=== PATIENT | female | born 1950 | race Caucasian/White ===

== ENCOUNTER → 2018-07-15 09:59 | Outpatient (CLI) | payer MEDICARE, SELFPAY ==
[2018-07-15 10:21] LABS: Add Manual Diff / Slide Review NO; Basophils Absolute Auto 0 /uL (0-100); Basophils Percent Auto 0.6 % (0-2); Eosinophils Absolute Auto 100 /uL (0-450); Eosinophils Percent Auto 0.9 % (2-4); Hematocrit 40.4 % (36-46); Hemoglobin 13.5 g/dL (12.0-16.0); Lymphocytes Absolute Auto 2700 /uL (1100-4500); Lymphocytes Percent Auto 37.9 % (25-40); Mean Corpuscular HGB Conc 33.5 % (30-36); Mean Corpuscular Hemoglobin 30.1 PG (26-34); Mean Corpuscular Volume 89.8 fL (80-100); Monocytes Absolute Auto 700 /uL (0-900); Neutrophils Absolute Auto 3700 /uL (1500-7000); Neutrophils Percent Auto 51.6 % (50-75); Platelet Count 276 X10^3/uL (150-400); Red Blood Cell Count 4.49 X10^6/uL (4.0-5.2); Red Cell Distribution Width 13.1 % (11.6-14.8); White Blood Cell Count 7.2 X10^3/uL (4.5-11.0)
[2018-07-15 10:32] LABS: Alanine Aminotransferase 25 IU/L (9-52); Albumin 4.7 g/dL (3.5-5.0); Albumin Globulin Ratio 1.4 (1.0-2.8); Alkaline Phosphatase 67 U/L (38-126); Aspartate Aminotransferase 31 IU/L (14-36); BUN Creatinine Ratio 31.7 (6-22); Bilirubin Total 0.6 mg/dL (0.2-1.3); Blood Urea Nitrogen 19 mg/dL (7-17); Calcium 9.8 mg/dL (8.4-10.2); Carbon Dioxide 29 mmol/L (22-32); Chloride 103 mmol/L (98-107); Creatine Kinase 49 U/L (30-135); Estimated Glomerular Filt Rate > 60.0 mL/min (>60); Globulin 3.4 g/dL (1.7-4.1); Glucose 99 mg/dL (80-110); HEMOLYSIS < 15 (0-50); Sodium 139 mmol/L (137-145); Total Protein 8.1 g/dL (6.3-8.2)
[2018-07-15 10:44] LABS: Troponin I < 0.012 ng/mL (0.01-0.034)
[2018-07-15 11:12] LABS: TSH w/ Reflex to FT4 1.46 uIU/mL (0.47-4.68)
== END ==
PROVIDERS: PCP Physician Assistant; Visit Provider Physician Assistant
DX: R00.2 Palpitations (principal)
CPT/HCPCS: 36415; 80053; 82550; 84443; 84484; 85025

== ENCOUNTER → 2019-10-25 07:17 | Outpatient (CLI) | payer MEDICARE, SELFPAY ==
[2019-10-25 08:40] LABS: Add Manual Diff / Slide Review NO; Basophils Absolute Auto 0 /uL (0-100); Basophils Percent Auto 0.5 % (0-2); Eosinophils Absolute Auto 100 /uL (0-450); Eosinophils Percent Auto 1.2 % (2-4); Hematocrit 40.1 % (36-46); Hemoglobin 13.2 g/dL (12.0-16.0); Lymphocytes Absolute Auto 2800 /uL (1100-4500); Lymphocytes Percent Auto 45.3 % (25-40); Mean Corpuscular Hemoglobin 29.5 PG (26-34); Mean Corpuscular Volume 89.3 fL (80-100); Monocytes Absolute Auto 700 /uL (0-900); Neutrophils Absolute Auto 2600 /uL (1500-7000); Platelet Count 276 X10^3/uL (150-400); Red Blood Cell Count 4.49 X10^6/uL (4.0-5.2); Red Cell Distribution Width 12.8 % (11.6-14.8); White Blood Cell Count 6.2 X10^3/uL (4.5-11.0)
[2019-10-25 09:04] LABS: Alanine Aminotransferase 12 IU/L (<35); Albumin Globulin Ratio 1.2 (1.0-2.8); Alkaline Phosphatase 63 U/L (38-126); Aspartate Aminotransferase 25 IU/L (14-36); BUN Creatinine Ratio 22.7 (6-22); Bilirubin Total 0.8 mg/dL (0.2-1.3); Blood Urea Nitrogen 15 mg/dL (7-17); Calcium 9.6 mg/dL (8.4-10.2); Carbon Dioxide 32 mmol/L (22-32); Chloride 101 mmol/L (98-107); Cholesterol 311 mg/dL (140-199); Estimated Glomerular Filt Rate > 60.0 mL/min (>60); Globulin 3.3 g/dL (1.7-4.1); Glucose 83 mg/dL (80-110); HDL Cholesterol 71 mg/dL (40-60); HEMOLYSIS < 15 (0-50); LDL Cholesterol Calculated 219 mg/dL (<100); Potassium 4.3 mmol/L (3.4-5.1); Sodium 140 mmol/L (137-145); Total Protein 7.3 g/dL (6.3-8.2); Triglycerides 104 mg/dL (35-150)
[2019-10-25 09:32] LABS: TSH w/ Reflex to FT4 2.31 uIU/mL (0.47-4.68)
== END ==
PROVIDERS: PCP Registered Nurse Diabetes Educator; Referring Provider Registered Nurse Diabetes Educator; Visit Provider Registered Nurse Diabetes Educator
DX: Z00.00 Encounter for general adult medical examination without abnormal findings (principal); R53.0 Neoplastic (malignant) related fatigue; E78.5 Hyperlipidemia, unspecified
CPT/HCPCS: 36415; 80053; 80061; 84443; 85025

== ENCOUNTER → 2020-01-06 11:04 | Outpatient (CLI) | payer MEDICARE, SELFPAY ==
[2020-01-06 11:48] LABS: RBC Urine None Seen (0-5/HPF)
[2020-01-06 12:47] LABS: Appearance Urine UA CLEAR; Bilirubin Urine UA NEGATIVE (NEGATIVE); Color Urine UA YELLOW; Glucose Urine UA NEGATIVE (Negative); Ketones Urine UA NEGATIVE (NEGATIVE); Leukocyte Esterase Urine UA TRACE (NEGATIVE); Nitrite Urine UA NEGATIVE (Negative); Occult Blood Urine UA NEGATIVE (Negative); Protein Urine UA NEGATIVE (Negative); Specific Gravity Urine UA 1.025 (1.000-1.035); Urobilinogen Urine UA 0.2 E.U./dL (0.2)
[2020-01-06 12:57] LABS: Bacteria Urine Occasional (0-1); Squamous Epithelial Cell Urine 0-1 /HPF (0-5/HPF); WBC Urine 1-5/HPF (0-5/HPF); pH Urine UA 5.5 (4.5-8.0)
[2020-01-06 12:58] LABS: Culture Indicated Urine Specimen Cultured; Mucus Urine 1+ (Negative)
== END ==
PROVIDERS: PCP Registered Nurse Diabetes Educator; Referring Provider Registered Nurse Diabetes Educator; Visit Provider Registered Nurse Diabetes Educator
DX: Z00.00 Encounter for general adult medical examination without abnormal findings (principal); R35.0 Frequency of micturition
CPT/HCPCS: 81001; 87086

== ENCOUNTER → 2020-02-01 17:22 | Outpatient (CLI) | payer MEDICARE, SELFPAY ==
--- NOTE | 2020-02-01 17:25 | DI.MG.S_ITS ---
BILATERAL DIGITAL SCREENING MAMMOGRAM 3D/2D WITH CAD: 02/01/2020 CLINICAL: Routine screening. Family history of breast cancer. Comparison is made to exams dated: 05/12/2017 mammogram, 04/29/2016 mammogram, and 03/20/2015 mammogram - outside location. The tissue of both breasts is predominantly fatty. Current study was also evaluated with a Computer Aided Detection (CAD) system. There are stable benign calcifications in both breasts. No significant masses, calcifications, or other findings are seen in either breast. There has been no significant interval change. IMPRESSION: BENIGN There is no mammographic evidence of malignancy. A 1 year screening mammogram is recommended. This exam was interpreted at Station ID: [id number]. NOTE: For mammograms, a report in lay terms will be sent to the patient. Approximately 15% of breast malignancies will not be visualized mammographically. In the management of a palpable breast mass, a negative mammogram must not discourage biopsy of a clinically suspicious lesion. Electronically Signed By: Abdirashid Chavarria acr/tova:02/02/2020 08:22:37 letter sent: Normal Exam ACR BI-RADS Category 2: Benign Finding(s) 3342F
== END ==
PROVIDERS: PCP Registered Nurse Diabetes Educator; Referring Provider Registered Nurse Diabetes Educator; Visit Provider Registered Nurse Diabetes Educator
DX: Z12.31 Encounter for screening mammogram for malignant neoplasm of breast (principal); Z80.3 Family history of malignant neoplasm of breast
CPT/HCPCS: 77063; 77067

== ENCOUNTER 2020-02-17 09:19 | Emergency (ER) | payer MEDICARE, SELFPAY ==
[2020-02-17 09:58] VITALS: BP 193/93; PULSE 67; RESP 18; TEMP 36.9; O2SAT 99; BMI 20.5
--- NOTE | 2020-02-17 10:02 | DI.RAD.S_ITS ---
PROCEDURE: XR KNEE LT 3V INDICATIONS: pain NO TRAUMA TECHNIQUE: 3 views of the knee were acquired. COMPARISON: None. FINDINGS: Bones: No fractures or dislocations. No suspicious bony lesions. Soft tissues: No joint effusion. No suspicious soft tissue calcifications. IMPRESSION: Unremarkable radiographic examination of left knee. Dictated by: Edin Benitez M.D. on 02/17/2020 at 10:42 Approved by: Edin Benitez M.D. on 02/17/2020 at 10:42
--- NOTE | 2020-02-17 11:10 | ED_ITS ---
HPI - Extremity Injury (Lower) <ROBERT WoodwardBC - Last Filed: 02/17/20 15:56> General Chief Complaint: Extremity Injury, Lower Stated Complaint: sprained L knee for week and a half Time Seen by Provider: 02/17/20 10:54 Source: patient Mode of arrival: Ambulatory Limitations: no limitations History of Present Illness HPI Narrative: The patient is a 69-year-old female nonsmoker with history of dyslipidemia who presents with a chief complaint of right knee pain for the past 2 weeks. She denies any specific falls or trauma, but states that her knee feels unsteady at times. He has improved with ice and Tylenol. However she came to the emergency department because it still hurts without the Tylenol. She denies any falls or trauma. She denies any specific injury. She has been persistently active on the knee until recently. She denies any redness overlying erythema. Denies any previous injuries to her knee. Related Data Home Medications Medication Instructions Recorded Confirmed Calcium gummies See Rx Instructions .ROUTE .COMPLEX 07/27/18 11/03/19 Multivitamin Gummies See Rx Instructions .ROUTE .COMPLEX 07/27/18 11/03/19 Sleep Aid ([employer] Brand) 1 tab PO BEDTIME 07/27/18 11/03/19 Previous Rx's Medication Instructions Recorded atorvastatin 20 mg tablet 20 mg PO BEDTIME #90 tab 11/03/19 Allergies Allergy/AdvReac Type Severity Reaction Status Date / Time No Known Drug Allergies Allergy Verified 02/17/20 09:58 Review of Systems <ARLYN Woodward - Last Filed: 02/17/20 15:56> Review of Systems Narrative: GENERAL: Denies chills, fatigue, malaise, fever, sweats. HEENT: Denies sinus pain, ear pain, sore throat, difficulty swallowing, dizziness. RESPIRATORY: Denies dyspnea, cough, wheezing, hemoptysis, sputum. CARDIOVASCULAR: Denies chest pain, palpitations, orthopnea, edema, GASTROINTESTINAL: Denies nausea, vomiting, abdominal pain, diarrhea, constipation, melena. : Denies dysuria, frequency, incontinence, hematuria, urinary retention. MUSCULOSKELETAL: See HPI SKIN: Denies rash, skin lesions, or other NEUROLOGIC: Denies weakness, headache, numbness, change in speech, confusion, seizures, incoordination. PSYCHIATRIC: No concerning psychosocial issues. 12 point review of systems is negative except for those stated above Patient History <ARLYN Woodward - Last Filed: 02/17/20 15:56> Medical History (Updated 02/17/20 @ 11:20 by ARLYN Woodward) Dyslipidemia Social History Smoking Status: Never smoker second hand exposure: No alcohol intake: current (very seldom. I don't like it.) substance use type: does not use Smoking Status: Never smoker alcohol intake frequency: 0-2 drinks per day Substance Use Type: does not use Exam <ARLYN Woodward - Last Filed: 02/17/20 15:56> Narrative Exam Narrative: GENERAL: This is a well-nourished, well-developed patient, no acute distress HEAD: Atraumatic. Normocephalic. No temporal or scalp tenderness. EYES: Pupils equal round and reactive. Extraocular motions intact. No scleral icterus. No injection or drainage. ENT: Nose without bleeding, purulent drainage or septal hematoma. Wearing a mask Airway patent. CARDIOVASCULAR: Regular rate and rhythm RESPIRATORY: No cough. No increased respiratory effort. No accessory muscle use. EXTREMITIES: No overt pain to palpation left knee. No overt swelling left knee. Able to fully flex and extend left leg. Positive pedal pulses left foot. Negative anterior, posterior, varus valgus, negative Juan Antonio's test. Able to lift entire leg off of recliner. BACK: Nontender without deformity or crepitance. No flank tenderness. NEURO: AOx3. SKIN: No rash or erythema on visible skin. No overlying erythema left knee. Initial Vital Signs Initial Vital Signs: Vital Signs Temperature 98.5 F 02/17/20 09:58 Pulse Rate 67 02/17/20 09:58 Respiratory Rate 18 02/17/20 09:58 Blood Pressure 193/93 H 02/17/20 09:58 Pulse Oximetry 99 02/17/20 09:58 <Ana Wright MD - Last Filed: 02/17/20 19:34> Initial Vital Signs Initial Vital Signs: Vital Signs Temperature 98.5 F 02/17/20 09:58 Pulse Rate 67 02/17/20 09:58 Respiratory Rate 18 02/17/20 09:58 Blood Pressure 193/93 H 02/17/20 09:58 Pulse Oximetry 99 02/17/20 09:58 Scores <ARLYN Woodward - Last Filed: 02/17/20 15:56> GCS [place] coma scale eye opening: Spontaneous [place] coma scale verbal response: Orientated [place] coma scale motor response: Obey commands [place] coma scale total score: 15 Course <ARLYN Woodward - Last Filed: 02/17/20 15:56> Orders Ordered: ED Orders 02/17/20 10:02 XR knee LT 3V Stat Vital Signs Vital signs: Vital Signs - 8 hr 02/17/20 11:42 Pulse Rate 68 Respiratory Rate 14 Blood Pressure 167/77 H Pulse Oximetry 99 <Ana Wright MD - Last Filed: 02/17/20 19:34> Orders Ordered: ED Orders 02/17/20 10:02 XR knee LT 3V Stat Vital Signs Vital signs: Vital Signs - 8 hr 02/17/20 11:42 Pulse Rate 68 Respiratory Rate 14 Blood Pressure 167/77 H Pulse Oximetry 99 MDM - Extremity Injury (Lower) <ARLYN Woodward - Last Filed: 02/17/20 15:56> Imaging Data Extremity x-ray #1: Radiologist's Impression: [address] [place] [id number] ReportSigned Patient: Bernie Lake LMR#: [id number]: 9Acct:[id number]/Sex: 69 / FDate of Service: 02/17/20Loc: EDAccession Number: [id number] Procedure: XR knee LT 3V Ordering Provider: Ana Wright MD PROCEDURE: XR KNEE LT 3V INDICATIONS: pain NO TRAUMA TECHNIQUE: 3 views of the knee were acquired. COMPARISON: None. FINDINGS: Bones: No fractures or dislocations. No suspicious bony lesions. Soft tissues: No joint effusion. No suspicious soft tissue calcifications. IMPRESSION: Unremarkable radiographic examination of left knee. Dictated by: Edin Benitez M.D. on 02/17/2020 at 10:42 Approved by: Edin Benitez M.D. on 02/17/2020 at 10:42 MDM Narrative Medical decision making narrative: The patient is a 69-year-old female who presents with a chief complaint of left knee pain for the past 2 weeks. Plain films are unremarkable. She has no overt signs of infection, is neurovascular intact is able to ambulate and her pain is well controlled with Tylenol and ice. I discussed that x-rays do not rule out soft tissue injury, encouraged follow- up with primary care provider for consideration of further care including pos sibly physical therapy etcetera. Patient has no questions or concerns upon discharge and states understanding of return precautions as well as follow-up care. Discharge Plan Departure Patient Disposition: Home Clinical Impression: Acute pain of left knee Instructions: How To Perform RICE (Rest, Ice, Compress, Elevate), DI for Knee Pain Activity Restrictions/Additional Instructions: Thank you for trusting us with your care today. As I discussed, your x-ray shows no acute fracture. This does not rule out a soft tissue injury such as a ligament or tendon injury. It is important that you follow up with primary care provider, especially if worsening or no improvement. There can be fractures that did not show up on initial x-ray. Please use rest ice compression elevation as well as [id number] pain medications as needed and able Please follow-up with primary care provider in the next few days. You may benefit from further evaluation, physical therapy etcetera. Please come back to the emergency department for any acute concerns. I wish you a speedy recovery. Prescriptions: No Action atorvastatin 20 mg tablet 20 mg PO BEDTIME Qty: 90 RF: 3 Calcium gummies See Rx Instructions .ROUTE .COMPLEX RF: 0 Multivitamin Gummies See Rx Instructions .ROUTE .COMPLEX RF: 0 Sleep Aid ([employer] Brand) 1 tab PO BEDTIME RF: 0 Referrals: Hans Benedict ARNP [Primary Care Provider] - <Ana Wright MD - Last Filed: 02/17/20 19:34> [facility] Att[facility]: I was immediately available in the department for consultation throughout this patient's visit. I agree with documentation as above. Ana Wright MD
[2020-02-17 11:42] VITALS: BP 167/77; PULSE 68; RESP 14; O2SAT 99
== END 2020-02-17 11:43 | disposition home or self-care (01) ==
PROVIDERS: Emergency Provider Nurse Practitioner Family; PCP Registered Nurse Diabetes Educator
DX: M25.562 Pain in left knee (principal); E78.5 Hyperlipidemia, unspecified
CPT/HCPCS: 73562; 99283

== ENCOUNTER → 2020-03-09 15:15 | Outpatient (CLI) | payer MEDICARE, SELFPAY ==
[2020-03-09] MEDS: COVID-19 VACC #1, MRNA(MOD) 100 MCG/0.5 ML VIAL IM (15:47)
== END ==
PROVIDERS: PCP Registered Nurse Diabetes Educator; Visit Provider Internal Medicine
DX: Z23 Encounter for immunization (principal)
CPT/HCPCS: 0011A; 91301

== ENCOUNTER → 2020-04-06 14:39 | Outpatient (CLI) | payer MEDICARE, SELFPAY ==
[2020-04-06] MEDS: COVID-19 VACC #2, MRNA(MOD) 100 MCG/0.5 ML VIAL IM (14:41)
== END ==
PROVIDERS: PCP Registered Nurse Diabetes Educator; Visit Provider Internal Medicine
DX: Z23 Encounter for immunization (principal)
CPT/HCPCS: 0012A; 91301

== ENCOUNTER → 2020-11-16 07:31 | Outpatient (CLI) | payer MEDICARE, SELFPAY ==
[2020-11-16 08:52] LABS: Hematocrit 40.5 % (36-46); Hemoglobin 13.1 g/dL (12.0-16.0); Mean Corpuscular HGB Conc 32.4 % (30-36); Mean Corpuscular Hemoglobin 29.2 PG (26-34); Mean Corpuscular Volume 89.9 fL (80-100); Platelet Count 304 X10^3/uL (150-400); Red Blood Cell Count 4.51 X10^6/uL (4.0-5.2); White Blood Cell Count 6.8 X10^3/uL (4.5-11.0)
[2020-11-16 09:06] LABS: Alanine Aminotransferase 13 IU/L (<35); Albumin 4.4 g/dL (3.5-5.0); Albumin Globulin Ratio 1.4 (1.0-2.8); Alkaline Phosphatase 57 U/L (38-126); Aspartate Aminotransferase 31 IU/L (14-36); BUN Creatinine Ratio 25.9 (6-22); Bilirubin Total 0.8 mg/dL (0.2-1.3); Blood Urea Nitrogen 14 mg/dL (7-17); Calcium 9.6 mg/dL (8.4-10.2); Carbon Dioxide 30 mmol/L (22-32); Chloride 103 mmol/L (98-107); Cholesterol 323 mg/dL (140-199); Estimated Glomerular Filt Rate > 60.0 mL/min (>60); Globulin 3.1 g/dL (1.7-4.1); Glucose 84 mg/dL (80-110); HDL Cholesterol 77 mg/dL (40-60); LDL Cholesterol Calculated 227 mg/dL (<100); Potassium 4.4 mmol/L (3.4-5.1); Sodium 140 mmol/L (137-145); Total Protein 7.5 g/dL (6.3-8.2); Triglycerides 96 mg/dL (35-150)
[2020-11-16 09:07] LABS: HEMOLYSIS 93 (0-50)
[2020-11-16 09:43] LABS: TSH w/ Reflex to FT4 1.82 uIU/mL (0.47-4.68)
[2020-11-16 09:54] LABS: Vitamin B12 Reflex MMA if <400 308 pg/mL (239-931)
[2020-11-20 09:03] LABS: Methylmalonic Acid,Serum 184 nmol/L (0-378)
== END ==
PROVIDERS: PCP Registered Nurse Diabetes Educator; Referring Provider Registered Nurse Diabetes Educator; Visit Provider Registered Nurse Diabetes Educator
DX: E78.5 Hyperlipidemia, unspecified (principal); R41.3 Other amnesia
CPT/HCPCS: 36415; 80053; 80061; 82607; 83921; 84443; 85027

== ENCOUNTER 2021-06-22 14:35 | Emergency (ER) | payer MEDICARE, SELFPAY | END 2021-06-22 14:43 | disposition left against medical advice (07) | PROVIDERS: Emergency Provider Emergency Medicine; PCP Registered Nurse Diabetes Educator ==

== ENCOUNTER 2022-04-29 05:19 | Emergency (ER) | payer MEDICARE, SELFPAY ==
[2022-04-29] VITALS (8 sets, daily range): BP systolic 147–173; BP diastolic 65–104; PULSE 56–68; RESP 18–23; TEMP 36.4; O2SAT 97–99; BMI 24.5
--- NOTE | 2022-04-29 05:32 | DI.RAD.S_ITS ---
PROCEDURE: XR CHEST 1V INDICATIONS: chest pain TECHNIQUE: One view of the chest was acquired. COMPARISON: None. FINDINGS: Surgical changes and devices: None. Lungs and pleura: Lungs are clear. No pleural effusions or pneumothorax. Mediastinum: Mediastinal contours appear normal. Heart size is normal. Bones and chest wall: No suspicious bony lesions. Overlying soft tissues appear unremarkable. IMPRESSION: No acute cardiopulmonary abnormality. This report is concordant with the overnight preliminary interpretation. Dictated by: Bret Doyle M.D. on 04/29/2022 at 8:17 Approved by: Bret Doyle M.D. on 04/29/2022 at 8:19
--- NOTE | 2022-04-29 05:55 | ED_ITS ---
HPI - Chest Pain <Sanjuana Lloyd DO - Last Filed: 05/02/22 07:14> General Chief Complaint: Chest Pain Stated Complaint: chest pain Time Seen by Provider: 04/29/22 05:26 History of Present Illness HPI narrative: Patient is a 71-year-old female history of early dementia hyperlipidemia presenting today with chest discomfort. She reports that she woke up and her normal state and started having some left-sided discomfort. It is nonradiating she denies any shortness of breath with exertion palpitations. She has no prior history of acute coronary syndrome or stenting. reports that she has had some chest discomfort off and on for the last couple of days. She denies any nausea or vomiting or diaphoresis. She denies any pain with movement or deep breaths Related Data Home Medications Medication Instructions Recorded Confirmed Calcium gummies See Rx Instructions .Route .COMPLEX 07/27/18 07/02/21 Multivitamin Gummies See Rx Instructions .Route .COMPLEX 07/27/18 07/02/21 Sleep Aid ([employer] Brand) 1 tab PO BEDTIME 07/27/18 07/02/21 Previous Rx's Medication Instructions Recorded atorvastatin 20 mg tablet 20 mg PO BEDTIME #90 tabs 12/11/20 Allergies Allergy/AdvReac Type Severity Reaction Status Date / Time No Known Drug Allergies Allergy Verified 07/02/21 08:29 Review of Systems <DO Abdoulaye Hurtado Last Filed: 05/02/22 07:14> Review of Systems ROS Unobtainable: All systems reviewed & are unremarkable except as noted in HPI and below Patient History <DO Abdoulaye Hurtado Last Filed: 05/02/22 07:14> Medical History (Updated 04/29/22 @ 08:26 by Rafael Johnson DO) Dyslipidemia Social History Smoking Status: Never smoker second hand exposure: No alcohol intake: current (very seldom. I don't like it.) substance use type: does not use Smoking Status: Never smoker alcohol intake frequency: 0-2 drinks per day Substance Use Type: does not use Exam <DO Abdoulaye Hurtado Last Filed: 05/02/22 07:14> Initial Vital Signs Initial Vital Signs: Vital Signs Temperature 97.6 F 04/29/22 05:25 Pulse Rate 67 04/29/22 05:25 Respiratory Rate 21 04/29/22 05:25 Blood Pressure 173/70 H 04/29/22 05:25 Pulse Oximetry 99 04/29/22 05:25 Oxygen Delivery Method Room Air 04/29/22 05:25 GENERAL: Alert pleasant 71-year-old female and in no acute distress. HEENT: Head atraumatic,EOMI, pupils reactive, face symmetric, moist mucous membranes CARDIOVASCULAR: Regular rate and rhythm without murmurs, rubs or gallops. RESPIRATORY: Breath sounds equal bilaterally, no wheezes rales or rhonchi. ABDOMEN: Soft, nontender. Normoactive bowel sounds all 4 quadrants. No guarding or rebound. EXTREMITIES: Normal range of motion, no clubbing or edema. Neurovascularly intact NEUROLOGICAL: Alert and oriented x4. SKIN: Warm, dry, no laceration, no petechiae, no rashes or lesions. <Rafael Johnson DO - Last Filed: 04/29/22 08:27> Initial Vital Signs Initial Vital Signs: Vital Signs Temperature 97.6 F 04/29/22 05:25 Pulse Rate 67 04/29/22 05:25 Respiratory Rate 21 04/29/22 05:25 Blood Pressure 173/70 H 04/29/22 05:25 Pulse Oximetry 99 04/29/22 05:25 Oxygen Delivery Method Room Air 04/29/22 05:25 Scores <Sanjuana Lloyd DO - Last Filed: 05/02/22 07:14> HEART Score Heart Score history: Slightly Suspicious Heart Score EKG: Normal Heart Score Age: > or = 65 years old Heart Score risk factors: 1-2 risk factors Heart Score troponin: < or = to normal limit Heart Score Total: 3 Course <Sanjuana Lloyd, DO - Last Filed: 05/02/22 07:14> Orders Ordered: ED Orders 04/29/22 05:32 XR chest 1V Stat EKG-12 Lead Stat 04/29/22 05:45 Complete Blood Count AUTO DIFF Stat Comprehensive Metabolic Panel Stat Lipase Stat Troponin & CK Cardiac Panel Stat 04/29/22 07:45 Trop I [Troponin I] Stat Vital Signs Vital signs: Vital Signs - 8 hr 04/29/22 05:25 04/29/22 05:57 04/29/22 06:00 Temperature 97.6 F Pulse Rate 67 59 L 56 L Respiratory Rate 21 21 22 Blood Pressure 173/70 H 147/72 H Pulse Oximetry 99 98 99 Oxygen Delivery Method Room Air <Rafael Johnson, DO - Last Filed: 04/29/22 08:27> Orders Ordered: ED Orders 04/29/22 05:32 XR chest 1V Stat EKG-12 Lead Stat 04/29/22 05:45 Complete Blood Count AUTO DIFF Stat Comprehensive Metabolic Panel Stat Lipase Stat Troponin & CK Cardiac Panel Stat 04/29/22 07:45 Trop I [Troponin I] Stat Vital Signs Vital signs: Vital Signs - 8 hr 04/29/22 05:25 04/29/22 05:57 04/29/22 06:00 Temperature 97.6 F Pulse Rate 67 59 L 56 L Respiratory Rate Blood Pressure 173/70 H 147/72 H Pulse Oximetry 99 98 99 Oxygen Delivery Method Room Air MDM - Chest Pain <Sanjuana Lloyd, DO - Last Filed: 05/02/22 07:14> Lab Data 04/29/22 05:45 04/29/22 05:45 Labs: Lab Results 04/29/22 04/29/22 04/29/22 Range/Units 05:45 05:45 07:45 WBC 6.7 (4.5-11.0) X10^3/uL RBC 4.48 (4.0-5.2) X10^6/uL Hgb 13.2 (12.0-16.0) g/dL Hct 39.0 (36-46) % MCV 87.1 (80-100) fL MCH 29.4 (26-34) PG MCHC 33.8 (30-36) % RDW 13.2 (11.6-14.8) % Plt Count 268 (150-400) X10^3/uL Neut % (Auto) 43.1 L (50-75) % Lymph % (Auto) 42.4 H (25-40) % [place] % (Auto) 11.4 (3-14) % Eos % (Auto) 2.2 (2-4) % Baso % (Auto) 0.9 (0-2) % Neut # (Auto) 2900 (8227-3591) /uL Lymph # (Auto) 2800 (3883-6793) /uL [place] # (Auto) 800 (0-900) /uL Eos # (Auto) 200 (0-450) /uL Baso # (Auto) 100 (0-100) /uL Sodium 138 (137-145) mmol/L Potassium 3.7 (3.4-5.1) mmol/L Chloride 105 (98-107) mmol/L Carbon Dioxide 28 (22-32) mmol/L BUN 12 (7-17) mg/dL Creatinine 0.59 (0.52-1.04) mg/dL Estimated GFR > 60 (>60) mL/min BUN/Creatinine Ratio 20.3 (6-22) Glucose 95 (80-110) mg/dL Calcium 9.1 (8.4-10.2) mg/dL Total Bilirubin 1.1 (0.2-1.3) mg/dL AST 22 (14-36) IU/L ALT 18 (<35) IU/L Alkaline Phosphatase 75 (38-126) U/L Total Creatine Kinase 35 (30-135) U/L CK-MB (CK-2) TNP CK-MB (CK-2) Rel Index TNP Troponin I < 0.012 < 0.012 (0.01-0.034) ng/mL Total Protein 7.6 (6.3-8.2) g/dL Albumin 4.1 (3.5-5.0) g/dL Globulin 3.5 (1.7-4.1) g/dL Albumin/Globulin Ratio 1.2 (1.0-2.8) Lipase 81 (23-300) U/L Urine Dip Bedside Urine Glucose Negative Bedside Urine Bilirubin - Negative Bedside Urine Ketone - Negative Urine Specific [place] 1.005 Bedside Urine Occult Blood - Negative Bedside Urine pH 7.0 Bedside Urine Protein - Negative Bedside Urine Urobilinogen - Negative Bedside Urine Nitrite - Negative Bedside Urine Leukocytes - Negative Esterase ECG Data Interpretation: Normal sinus rhythm rate 63 VT interval 138 QRS [address] changes no wave inversions, no prior MDM Narrative Medical decision making narrative: Patient 71-year-old female history of mild dementia hyperlipidemia presenting with chest discomfort. reports it has been off and on for the last couple of days patient denies saying it is only today. Normal EKG and chest x- ray. Blood work so far is overall reassuring no leukocytosis or anemia electrolyte abnormality or KATELYN. Patient will need a repeat troponin. Heart score is low Patient signed out to Dr. Johnson for further disposition Dr Johnson: Received turned over. Review patient's history and physical exam workup up to this point. Patient is currently asymptomatic. EKG is nonischemic. Troponins negative x2. Chest x-ray is unremarkable. Plan will be is to discharge patient home with follow-up with primary provider to discuss further testing if needed. I discussed this with the patient and her at bedside. They expressed understanding and agreement with plan. <Rafael Johnson, DO - Last Filed: 04/29/22 08:27> Lab Data Labs: Lab Results 04/29/22 04/29/22 04/29/22 Range/Units 05:45 05:45 07:45 WBC 6.7 (4.5-11.0) X10^3/uL RBC 4.48 (4.0-5.2) X10^6/uL Hgb 13.2 (12.0-16.0) g/dL Hct 39.0 (36-46) % MCV 87.1 (80-100) fL MCH 29.4 (26-34) PG MCHC 33.8 (30-36) % RDW 13.2 (11.6-14.8) % Plt Count 268 (150-400) X10^3/uL Neut % (Auto) 43.1 L (50-75) % Lymph % (Auto) 42.4 H (25-40) % [place] % (Auto) 11.4 (3-14) % Eos % (Auto) 2.2 (2-4) % Baso % (Auto) 0.9 (0-2) % Neut # (Auto) 2900 (2508-4073) /uL Lymph # (Auto) 2800 (5450-6519) /uL [place] # (Auto) 800 (0-900) /uL Eos # (Auto) 200 (0-450) /uL Baso # (Auto) 100 (0-100) /uL Sodium 138 (137-145) mmol/L Potassium 3.7 (3.4-5.1) mmol/L Chloride 105 (98-107) mmol/L Carbon Dioxide 28 (22-32) mmol/L BUN 12 (7-17) mg/dL Creatinine 0.59 (0.52-1.04) mg/dL Estimated GFR > 60 (>60) mL/min BUN/Creatinine Ratio 20.3 (6-22) Glucose 95 (80-110) mg/dL Calcium 9.1 (8.4-10.2) mg/dL Total Bilirubin 1.1 (0.2-1.3) mg/dL AST 22 (14-36) IU/L ALT 18 (<35) IU/L Alkaline Phosphatase 75 (38-126) U/L Total Creatine Kinase 35 (30-135) U/L CK-MB (CK-2) TNP CK-MB (CK-2) Rel Index TNP Troponin I < 0.012 < 0.012 (0.01-0.034) ng/mL Total Protein 7.6 (6.3-8.2) g/dL Albumin 4.1 (3.5-5.0) g/dL Globulin 3.5 (1.7-4.1) g/dL Albumin/Globulin Ratio 1.2 (1.0-2.8) Lipase 81 (23-300) U/L Urine Dip Bedside Urine Glucose Negative Bedside Urine Bilirubin - Negative Bedside Urine Ketone - Negative Urine Specific [place] 1.005 Bedside Urine Occult Blood - Negative Bedside Urine pH 7.0 Bedside Urine Protein - Negative Bedside Urine Urobilinogen - Negative Bedside Urine Nitrite - Negative Bedside Urine Leukocytes - Negative Esterase MDM Narrative Medical decision making narrative: Patient 71-year-old female history of mild dementia hyperlipidemia presenting with chest discomfort. reports it has been off and on for the last couple of days patient denies saying it is only today. Normal EKG and chest x- ray. Blood work so far is overall reassuring no leukocytosis or anemia elec trolyte abnormality or KATELYN. Patient will need a repeat troponin Patient signed out to Dr. Johnson for further disposition Dr Johnson: Received turned over. Review patient's history and physical exam workup up to this point. Patient is currently asymptomatic. EKG is nonischemic. Troponins negative x2. Chest x-ray is unremarkable. Plan will be is to discharge patient home with follow-up with primary provider to discuss further testing if needed. I discussed this with the patient and her at bedside. They expressed understanding and agreement with plan. Discharge Plan Departure Patient Disposition: Home Clinical Impression: Atypical chest pain Instructions: DI for Atypical Chest Pain Activity Restrictions/Additional Instructions: I do recommend that you continue to take all of your medications as directed. Contact your primary doctor for follow-up to discuss further workup of your discomfort. Please return to the emergency department for any new or worsening symptoms. Prescriptions: No Action atorvastatin 20 mg tablet 20 mg PO BEDTIME Qty: 90 3RF Calcium gummies See Rx Instructions .ROUTE .COMPLEX Patient Comments: 2 gummies PO QDAY Rx Instructions: 2 gummies PO QDAY Multivitamin Gummies See Rx Instructions .ROUTE .COMPLEX Patient Comments: 2 gummies PO QDAY Rx Instructions: 2 gummies PO QDAY Sleep Aid ([employer] Brand) 1 tab PO BEDTIME Referrals: Sheldon Dhillon MD [Primary Care Provider] - Stand Alone Forms: Patient Portal/API
[2022-04-29 06:00] LABS: Add Manual Diff / Slide Review NO; Basophils Absolute Auto 100 /uL (0-100); Basophils Percent Auto 0.9 % (0-2); Eosinophils Absolute Auto 200 /uL (0-450); Eosinophils Percent Auto 2.2 % (2-4); Hemoglobin 13.2 g/dL (12.0-16.0); Lymphocytes Absolute Auto 2800 /uL (1100-4500); Lymphocytes Percent Auto 42.4 % (25-40); Mean Corpuscular HGB Conc 33.8 % (30-36); Mean Corpuscular Hemoglobin 29.4 PG (26-34); Mean Corpuscular Volume 87.1 fL (80-100); Monocytes Absolute Auto 800 /uL (0-900); Monocytes Percent Auto 11.4 % (3-14); Neutrophils Absolute Auto 2900 /uL (1500-7000); Neutrophils Percent Auto 43.1 % (50-75); Platelet Count 268 X10^3/uL (150-400); Red Blood Cell Count 4.48 X10^6/uL (4.0-5.2); Red Cell Distribution Width 13.2 % (11.6-14.8); White Blood Cell Count 6.7 X10^3/uL (4.5-11.0)
[2022-04-29 06:11] LABS: Alanine Aminotransferase 18 IU/L (<35); Albumin 4.1 g/dL (3.5-5.0); Albumin Globulin Ratio 1.2 (1.0-2.8); Alkaline Phosphatase 75 U/L (38-126); Aspartate Aminotransferase 22 IU/L (14-36); BUN Creatinine Ratio 20.3 (6-22); Bilirubin Total 1.1 mg/dL (0.2-1.3); Blood Urea Nitrogen 12 mg/dL (7-17); Calcium 9.1 mg/dL (8.4-10.2); Carbon Dioxide 28 mmol/L (22-32); Chloride 105 mmol/L (98-107); Creatine Kinase 35 U/L (30-135); Estimated Glomerular Filt Rate > 60 mL/min (>60); Globulin 3.5 g/dL (1.7-4.1); Glucose 95 mg/dL (80-110); HEMOLYSIS < 15 (0-50); Lipase 81 U/L (23-300); Potassium 3.7 mmol/L (3.4-5.1); Sodium 138 mmol/L (137-145); Total Protein 7.6 g/dL (6.3-8.2)
[2022-04-29 06:22] LABS: Troponin I < 0.012 ng/mL (0.01-0.034)
--- NOTE | 2022-04-29 07:28 | PC.NURSE ---
Pt has dementia, per daughter.
[2022-04-29 08:19] LABS: Troponin I < 0.012 ng/mL (0.01-0.034)
== END 2022-04-29 09:00 | disposition home or self-care (01) ==
PROVIDERS: Emergency Medicine; Emergency Provider Emergency Medicine; PCP Family Medicine
DX: R07.89 Other chest pain (principal)
CPT/HCPCS: 36415; 71045; 80053; 81003; 82550; 83690; 84484; 85025; 93005; 93010; 99283

== ENCOUNTER 2023-07-14 09:42 | Emergency (ER) | payer MEDICARE, SELFPAY ==
[2023-07-14 09:45] VITALS: BP 168/81; PULSE 52; O2SAT 99
[2023-07-14 09:47] VITALS: BP 129/62; PULSE 49; RESP 18; TEMP 36.2; O2SAT 100; BMI 20.5
--- NOTE | 2023-07-14 09:48 | DI.RAD.S_ITS ---
PROCEDURE: XR CHEST 1V INDICATIONS: chest pain TECHNIQUE: One view of the chest was acquired. COMPARISON: [facility], CR, XR CHEST 1V, 04/29/2022, 5:58. FINDINGS: Surgical changes and devices: None. Lungs and pleura: Lungs are clear. No pleural effusions or pneumothorax. Mediastinum: Mediastinal contours appear normal. Heart size is normal. Bones and chest wall: No suspicious bony lesions. Overlying soft tissues appear unremarkable. IMPRESSION: No acute cardiopulmonary abnormality is seen. Dictated by: Laura Chang MD, PhD on 07/14/2023 at 10:16 Approved by: Laura Chang MD, PhD on 07/14/2023 at 10:16
[2023-07-14 09:57] LABS: Add Manual Diff / Slide Review NO; Basophils Absolute Auto 100 /uL (0-100); Basophils Percent Auto 0.9 % (0-2); Eosinophils Absolute Auto 100 /uL (0-450); Eosinophils Percent Auto 1.1 % (2-4); Hematocrit 40.9 % (36-46); Hemoglobin 13.6 g/dL (12.0-16.0); Lymphocytes Absolute Auto 3500 /uL (1100-4500); Lymphocytes Percent Auto 40.8 % (25-40); Mean Corpuscular HGB Conc 33.2 % (30-36); Mean Corpuscular Hemoglobin 29.2 PG (26-34); Mean Corpuscular Volume 87.9 fL (80-100); Monocytes Absolute Auto 800 /uL (0-900); Monocytes Percent Auto 9.4 % (3-14); Neutrophils Absolute Auto 4100 /uL (1500-7000); Neutrophils Percent Auto 47.8 % (50-75); Platelet Count 272 X10^3/uL (150-400); Red Blood Cell Count 4.65 X10^6/uL (4.0-5.2); White Blood Cell Count 8.5 X10^3/uL (4.5-11.0)
[2023-07-14 10:00] VITALS: BP 159/76; PULSE 59; RESP 23; O2SAT 99
--- NOTE | 2023-07-14 10:00 | ED.CHESTPAIN ---
HPI - Chest Pain General Chief Complaint: Chest Pain Stated Complaint: Near Syncope Time Seen by Provider: 07/14/23 09:48 Source: patient and EMS Mode of arrival: Ambulatory Limitations: no limitations History of Present Illness HPI narrative: 72-year-old female with no known coronary artery disease, has risk factor hyperlipidemia, no diabetes/hypertension, smoking, has left anterior chest discomfort onset approximately 9:00 a.m. sitting at rest at her home, felt like she might pass out, did not actually pass out, no radiation to the back arm jaw leg. 911 called, arrived by EMS, given oral aspirin EN route. Screening EKG suspicious for inferior ST-elevation myocardial infarction. She denies shortness of breath, she denies weakness to face arm or leg. She has not had any recent fevers chills cough illness symptoms. No black or red stools. She believes he she had some kind of stress test years ago, never had any diagnosis of heart attack known, heart problems known, does not see a regular charter driver. Related Data Home Medications Medication Instructions Recorded Confirmed Calcium gummies See Rx Instructions .Route .COMPLEX 07/27/18 07/02/21 Multivitamin Gummies See Rx Instructions .Route .COMPLEX 07/27/18 07/02/21 Sleep Aid ([employer] Brand) 1 tab PO BEDTIME 07/27/18 07/02/21 Previous Rx's Medication Instructions Recorded atorvastatin 20 mg tablet 20 mg PO BEDTIME #90 tabs 12/11/20 Allergies Allergy/AdvReac Type Severity Reaction Status Date / Time No Known Drug Allergies Allergy Verified 07/02/21 08:29 Review of Systems Review of Systems Narrative: As per HPI Patient History Medical History (Updated 07/14/23 @ 10:07 by Parveen Burrows MD) Dyslipidemia Social History Smoking Status: Never smoker second hand exposure: No alcohol intake: current (very seldom. I don't like it.) substance use type: does not use Smoking Status: Never smoker alcohol intake frequency: 0-2 drinks per day Substance Use Type: does not use Exam Narrative Exam Narrative: GENERAL: Well-developed patient, in mild distress. HEAD: Atraumatic. Normocephalic. EYES: Pupils equal round and reactive. Extraocular motions intact. No scleral icterus. No injection or drainage. ENT: Nose without bleeding, purulent drainage. Throat without erythema, tonsillar hypertrophy or exudate. Airway patent. NECK: Trachea midline. Non tender CARDIOVASCULAR: Regular rate and rhythm without murmurs, gallops, or rubs. RESPIRATORY: Clear to auscultation. Breath sounds equal bilaterally. No wheezes, rales, or rhonchi. No chest wall tenderness GASTROINTESTINAL: Abdomen soft, non-tender, nondistended. EXTREMITIES: No edema or joint tenderness. No leg pain or swelling BACK: Nontender without deformity or crepitance. No flank tenderness. NEURO: AOx3. SKIN: No rash or erythema of visible areas Initial Vital Signs Initial Vital Signs: Vital Signs Pulse Rate 52 L 07/14/23 09:45 Blood Pressure 168/81 H 07/14/23 09:45 Pulse Oximetry 99 07/14/23 09:45 Course Orders Ordered: Discontinued Medications Heparin Sodium (Porcine) (Heparin 5,000 Unit/Ml Vial) 3,500 unit 60 unit/kg (3500 unit) IV NOW ONE Stop: 07/14/23 10:01 Last Admin: 07/14/23 10:05 Dose: 3,500 unit Documented By: SISSY Sodium Chloride (Normal Saline 0.9%) 1,000 mls @ 150 mls/hr IV CONT RED Heparin Sodium/Dextrose (Heparin Drip) 25,000 unit in 500 mls @ 13.063 mls/hr IV CONT RED; Protocol Last Admin: 07/14/23 10:04 Dose: 12 units/kg/hr, 13.063 mls/hr Documented By: SISSY Co-signed By: JENIFFER Morphine Sulfate (Morphine 2 Mg/Ml Inj) 2 mg IV NOW ONE Stop: 07/14/23 10:03 Last Admin: 07/14/23 10:06 Dose: 2 mg Documented By: SISSY Vital Signs Vital signs: Vital Signs - 8 hr 07/14/23 09:47 Temperature 97.1 F L Pulse Rate 49 L Respiratory Rate 18 Blood Pressure 129/62 Pulse Oximetry 100 Oxygen Delivery Method Room Air MDM - Chest Pain Lab Data Attestation: I reviewed the patient's lab results. 07/14/23 09:30 07/14/23 09:30 Labs: Lab Results 07/14/23 Range/Units 09:30 WBC 8.5 (4.5-11.0) X10^3/uL RBC 4.65 (4.0-5.2) X10^6/uL Hgb 13.6 (12.0-16.0) g/dL Hct 40.9 (36-46) % MCV 87.9 (80-100) fL MCH 29.2 (26-34) PG MCHC 33.2 (30-36) % RDW 13.0 (11.6-14.8) % Plt Count 272 (150-400) X10^3/uL Neut % (Auto) 47.8 L (50-75) % Lymph % (Auto) 40.8 H (25-40) % [place] % (Auto) 9.4 (3-14) % Eos % (Auto) 1.1 L (2-4) % Baso % (Auto) 0.9 (0-2) % Neut # (Auto) 4100 (4705-9063) /uL Lymph # (Auto) 3500 (1946-1628) /uL [place] # (Auto) 800 (0-900) /uL Eos # (Auto) 100 (0-450) /uL Baso # (Auto) 100 (0-100) /uL Sodium 138 (137-145) mmol/L Potassium 3.7 (3.4-5.1) mmol/L Chloride 104 (98-107) mmol/L Carbon Dioxide 27 (22-32) mmol/L BUN 10 (7-17) mg/dL Creatinine 0.59 (0.52-1.04) mg/dL Estimated GFR > 60 (>60) mL/min BUN/Creatinine Ratio 16.9 (6-22) Glucose 156 H (80-110) mg/dL Calcium 9.2 (8.4-10.2) mg/dL Total Bilirubin 0.6 (0.2-1.3) mg/dL AST 25 (14-36) IU/L ALT 15 (<35) IU/L Alkaline Phosphatase 78 (38-126) U/L Total Creatine Kinase 57 (30-135) U/L Troponin I 0.039 H (0.01-0.034) ng/mL Total Protein 7.8 (6.3-8.2) g/dL Albumin 4.5 (3.5-5.0) g/dL Globulin 3.3 (1.7-4.1) g/dL Albumin/Globulin Ratio 1.4 (1.0-2.8) Lipase 113 (23-300) U/L Imaging Data Chest x-ray: Attestation: I personally reviewed and interpreted this imaging study as follows: My Impression: No acute changes on chest x-ray obvious, mediastinum not obviously widened, no cephalization of vessels, no pleural capping, normal cardiac silhouette in size, no pleural effusions. No pulmonary infiltrates, no pneumothorax. ECG Data Attestation: I personally reviewed and interpreted this ECG as follows: Interpretation: Sinus bradycardia with rate 51, ST segment elevation noted in inferior leads, with reciprocal changes septal leads, ST segment depression in those leads V1 through V2. Consistent with inferior acute ST segment myocardial infarction. MDM Narrative Medical decision making narrative: 72-year-old female with chest pain, ED screening EKG suspicious for inferior acute ST elevation myocardial infarction, with reciprocal ST segment depressions septal leads, still having slight chest discomfort, systolic blood pressure 160s, heart rate upper 50-60, given aspirin by EMS. Chest x-ray without widening mediastinum or pleural capping, IV heparin bolus/infusion initiated. IV Morphine 2 mg if tolerated, IV Zofran. We will contact [facility] regarding activation of laboratory inspector [id number], phone call to ED physician [facility] Dr. Raf Calvillo, faxed EKG to be sent there, accepts patient for transfer, anticipated laboratory inspector activation. EMS transport initiated. Critical Care Time Critical Care Time Critical Care Time: Yes Total Critical Care Time: 35 Attestation: The high probability of a clinically significant, sudden or life threatening deterioration of the [cardiopulmonary] system(s) required my full and direct attention, intervention and personal management. The aggregate critical care time was [35] minutes. This time is in addition to time spent performing reported procedures but includes the following: [x] Data Review and interpretation [x] Patient assessment and monitoring of vital signs [x] Documentation [x] Medication orders and management Discharge Plan Departure Patient Disposition: [facility] Clinical Impression: Acute ST segment elevation NV, Chest pain Prescriptions: No Action atorvastatin 20 mg tablet 20 mg PO BEDTIME Qty: 90 3RF Calcium gummies See Rx Instructions .ROUTE .COMPLEX Patient Comments: 2 gummies PO QDAY Rx Instructions: 2 gummies PO QDAY Multivitamin Gummies See Rx Instructions .ROUTE .COMPLEX Patient Comments: 2 gummies PO QDAY Rx Instructions: 2 gummies PO QDAY Sleep Aid ([employer] Brand) 1 tab PO BEDTIME Referrals: Sheldon Dhillon MD [Primary Care Provider] -
[2023-07-14 10:04] LABS: Alanine Aminotransferase 15 IU/L (<35); Albumin 4.5 g/dL (3.5-5.0); Albumin Globulin Ratio 1.4 (1.0-2.8); Alkaline Phosphatase 78 U/L (38-126); Aspartate Aminotransferase 25 IU/L (14-36); BUN Creatinine Ratio 16.9 (6-22); Bilirubin Total 0.6 mg/dL (0.2-1.3); Blood Urea Nitrogen 10 mg/dL (7-17); Calcium 9.2 mg/dL (8.4-10.2); Carbon Dioxide 27 mmol/L (22-32); Chloride 104 mmol/L (98-107); Creatine Kinase 57 U/L (30-135); Estimated Glomerular Filt Rate > 60 mL/min (>60); Globulin 3.3 g/dL (1.7-4.1); Glucose 156 mg/dL (80-110); HEMOLYSIS < 15 (0-50); Lipase 113 U/L (23-300); Potassium 3.7 mmol/L (3.4-5.1); Sodium 138 mmol/L (137-145); Total Protein 7.8 g/dL (6.3-8.2)
[2023-07-14] MEDS: HEPARIN DRIP 25,000 UNIT/500 ML IV.SOLN 13.063 UNIT IV (10:04)
[2023-07-14] MEDS: HEPARIN 5,000 UNIT/ML VIAL 3500 UNIT IV (10:05)
[2023-07-14 10:06] VITALS: BP 152/74; PULSE 61; O2SAT 97
[2023-07-14] MEDS: MORPHINE 2 MG/ML INJ IV (10:06)
[2023-07-14 10:10] VITALS: BP 156/77; PULSE 61; RESP 26; O2SAT 96
[2023-07-14 10:15] LABS: Troponin I 0.039 ng/mL (0.01-0.034)
--- NOTE | 2023-07-14 10:20 | PC.NURSE ---
Upon arrival pt denying chest pain. Medics showed RN EKG done in field showing no ST elevation. At 0953 EKG obtained in ED showing STEMI. Dr. Burrows immediately notified and at bedside, bilateral PIV established, heparin gtt/bolus and IV morphine ordered. [place] [facility] still in ED and [facility] ER notifed. Pt left ED to go to [facility] ER at 1020 with [facility].
--- NOTE | 2023-07-14 10:22 | PC.NURSE ---
Noticed ST elevation around 0952 on 5 lead EKG. obtaining a 12 lead EKG, Dr. Markos lagos. [facility] called. EMS, Henri and Eric in ambulance bay notified.
== END 2023-07-14 10:20 | disposition short-term general hospital (02) ==
PROVIDERS: Emergency Provider Emergency Medicine; PCP Family Medicine
DX: I21.3 ST elevation (STEMI) myocardial infarction of unspecified site (principal); R07.9 Chest pain, unspecified
CPT/HCPCS: 36415; 71045; 80053; 82550; 83690; 84484; 85025; 93005; 96365; 96375; 99284; 99291; J1644; J2270

== ENCOUNTER 2024-04-20 17:24 | Emergency (ER) | payer MEDICARE, SELFPAY ==
[2024-04-20] VITALS (20 sets, daily range): BP systolic 128–179; BP diastolic 62–84; PULSE 51–91; RESP 15–26; TEMP 36.6; O2SAT 94–100; BMI 18.6
--- NOTE | 2024-04-20 17:36 | DI.RAD.S_ITS ---
PROCEDURE: XR CHEST 1V INDICATIONS: chest pain TECHNIQUE: One view of the chest was acquired. COMPARISON: [facility], CR, XR CHEST 1V, 07/14/2023, 10:01. FINDINGS: Surgical changes and devices: None. Lungs and pleura: Lungs are clear. No pleural effusions or pneumothorax. Mediastinum: Mediastinal contours appear normal. Heart size is normal. Bones and chest wall: No suspicious bony lesions. Overlying soft tissues appear unremarkable. IMPRESSION: No acute cardiopulmonary abnormality is seen. Dictated by: Hamzah Yo M.D. on 04/20/2024 at 18:51 Approved by: Hamzah Yo M.D. on 04/20/2024 at 18:52
--- NOTE | 2024-04-20 17:38 | EKG_ITS ---
[address] [address] Test Date: 2024-04-20 Pat Name: Bernie Lake Department: Room: Gender: Female Sales Consultant Residential Manager: ELTON : 1950 Requested By: Order Number: [id number] Reading MD: Juan Gomez Measurements Intervals [place] Rate: 58 P: 46 AR: 166 QRS: -5 QRSD: 82 T: 45 QT: 426 QTc: 418 Interpretive Statements Sinus bradycardia Electronically Signed On 04-23-2024 18:28:32 PDT by Juan Gomez
[2024-04-20] MEDS: ASPIRIN 81 MG CHEW TAB 324 MG PO (18:02)
[2024-04-20 18:05] LABS: Add Manual Diff / Slide Review NO; Basophils Absolute Auto 100 /uL (0-100); Basophils Percent Auto 1.2 % (0-2); Eosinophils Absolute Auto 100 /uL (0-450); Eosinophils Percent Auto 1.5 % (2-4); Hematocrit 38.1 % (36-46); Hemoglobin 12.9 g/dL (12.0-16.0); Lymphocytes Absolute Auto 3600 /uL (1100-4500); Lymphocytes Percent Auto 40.3 % (25-40); Mean Corpuscular HGB Conc 33.9 % (30-36); Mean Corpuscular Hemoglobin 29.6 PG (26-34); Mean Corpuscular Volume 87.3 fL (80-100); Monocytes Absolute Auto 900 /uL (0-900); Monocytes Percent Auto 10.4 % (3-14); Neutrophils Absolute Auto 4200 /uL (1500-7000); Neutrophils Percent Auto 46.6 % (50-75); Platelet Count 300 X10^3/uL (150-400); Red Blood Cell Count 4.36 X10^6/uL (4.0-5.2); Red Cell Distribution Width 13.5 % (11.6-14.8); White Blood Cell Count 8.9 X10^3/uL (4.5-11.0)
[2024-04-20 18:06] LABS: Prothrombin Time 11.4 SECONDS (9.4-12.5)
[2024-04-20 18:08] LABS: PTT Partial Thromboplastin Tim 30 SECONDS (25.1-36.5)
[2024-04-20 18:10] LABS: Alanine Aminotransferase 20 IU/L (<35); Albumin 4.3 g/dL (3.5-5.0); Albumin Globulin Ratio 1.5 (1.0-2.8); Alkaline Phosphatase 56 U/L (38-126); Aspartate Aminotransferase 26 IU/L (14-36); BUN Creatinine Ratio 16.4 (6-22); Bilirubin Total 0.4 mg/dL (0.2-1.3); Blood Urea Nitrogen 11 mg/dL (7-17); Calcium 9.7 mg/dL (8.4-10.2); Carbon Dioxide 27 mmol/L (22-32); Chloride 105 mmol/L (98-107); Creatine Kinase 45 U/L (30-135); Estimated Glomerular Filt Rate > 60 mL/min (>60); Globulin 2.9 g/dL (1.7-4.1); Glucose 119 mg/dL (80-110); HEMOLYSIS 20 (0-50); Lipase 145 U/L (23-300); Magnesium 2.1 mg/dL (1.6-2.3); Sodium 138 mmol/L (137-145); Total Protein 7.2 g/dL (6.3-8.2)
[2024-04-20 18:22] LABS: NT-proBNP (BNP-Adult 18+) 175 pg/mL (<450); Troponin I < 0.012 ng/mL (0.01-0.034)
--- NOTE | 2024-04-20 18:23 | PC.NURSE ---
Per pt has 30% dementia. Pt does repeat questions at time. Daughters and at bedside. Encouraged to use call light for needs.
[2024-04-20 20:30] LABS: Troponin I < 0.012 ng/mL (0.01-0.034)
--- NOTE | 2024-04-20 20:51 | PC.NURSE ---
GCS 14 due to confusion. Pt reports dementia at baseline.
--- NOTE | 2024-04-20 22:06 | ED_ITS ---
HPI - Chest Pain General Chief Complaint: Chest Pain Stated Complaint: chest pain Time Seen by Provider: 04/20/24 21:05 Source: patient, RN notes reviewed and old records reviewed Mode of arrival: Ambulatory Limitations: no limitations History of Present Illness HPI narrative: 73-year-old female with a history of coronary artery disease hypertension, dyslipidemia had stent placed in July of [address] [facility] patient is on Plavix and aspirin 81 mg. Family does note she was starting to develop a little bit of dementia. Patient presents with a little bit of substernal chest pain earlier today sounds like it was on and off but has resolved since this afternoon. Has not had any persistent or new chest pain. She denies any shortness of breath. No diaphoresis. No nausea or vomiting. She felt a little dizzy. Denies any new swelling in your extremities. No other GI or urinary symptoms. She has not followed up with Cardiology had canceled her appointment but has been following with her primary care physician. She was on aspirin 81 mg daily, Plavix 75 mg daily losartan 25 mg daily and metoprolol extended release 25 mg daily. She has not had any other surgeries. No tobacco, alcohol or recreational drugs. No reported allergies. Dr. Dhillon is her primary care physician. Related Data Home Medications Medication Instructions Recorded Confirmed Calcium gummies See Rx Instructions .Route .COMPLEX 07/27/18 07/02/21 Multivitamin Gummies See Rx Instructions .Route .COMPLEX 07/27/18 07/02/21 Sleep Aid ([employer] Brand) 1 tab PO BEDTIME 07/27/18 07/02/21 Previous Rx's Medication Instructions Recorded atorvastatin 20 mg tablet 20 mg PO BEDTIME #90 tabs 12/11/20 Allergies Allergy/AdvReac Type Severity Reaction Status Date / Time No Known Drug Allergies Allergy Verified 07/02/21 08:29 Review of Systems Review of Systems ROS Unobtainable: All systems reviewed & are unremarkable except as noted in HPI and below Patient History Medical History (Updated 04/20/24 @ 22:31 by Ashley Black DO) Dyslipidemia Social History Smoking Status: Never smoker second hand exposure: No alcohol intake: current (very seldom. I don't like it.) substance use type: does not use Smoking Status: Never smoker alcohol intake frequency: 0-2 drinks per day Exam Narrative Exam Narrative: GENERAL: Alert and oriented x three, female in acute distress HEENT: Head normocephalic, atraumatic, EOMI, pupils reactive, face symmetric, moist mucous membranes NECK: Supple, full range of motion CARDIOVASCULAR: Regular rate and rhythm without murmurs, rubs or gallops. No JVD. No edema bilateral lower extremities. RESPIRATORY: Breath sounds equal bilaterally, no wheezes rales or rhonchi. ABDOMEN: Soft, nontender. Normoactive bowel sounds all 4 quadrants. No guarding or rebound, rigidity, no mass : No CVA tenderness EXTREMITIES: Normal range of motion, no clubbing or edema. Neurovascularly intact NEUROLOGICAL: Cranial nerves II through XII grossly intact. Moving all extremities SKIN: Warm, dry, no petechiae, no rashes or lesions. Initial Vital Signs Initial Vital Signs: Vital Signs Temperature 98 F 04/20/24 17:28 Pulse Rate 62 04/20/24 17:28 Respiratory Rate 20 04/20/24 17:28 Blood Pressure 179/84 H 04/20/24 17:28 Pulse Oximetry 100 04/20/24 17:28 Oxygen Delivery Method Room Air 04/20/24 17:28 Course Orders Ordered: ED Orders 04/20/24 19:45 Trop I [Troponin I] Stat Discontinued Medications Aspirin (Aspirin 81 Mg Chew Tab) 324 mg PO NOW ONE Stop: 04/20/24 17:37 Last Admin: 04/20/24 18:02 Dose: 324 mg Documented By: SB Vital Signs Vital signs: Vital Signs - 8 hr 04/20/24 20:30 04/20/24 20:31 04/20/24 20:31 Pulse Rate 54 L 55 L Respiratory Rate Blood Pressure 132/69 Pulse Oximetry 98 97 Oxygen Delivery Method Room Air 04/20/24 21:00 04/20/24 21:00 04/20/24 21:30 Pulse Rate 57 L 59 L Respiratory Rate Blood Pressure 143/68 H Pulse Oximetry 94 96 Oxygen Delivery Method 04/20/24 21:36 04/20/24 21:36 04/20/24 22:00 Pulse Rate 60 51 L Respiratory Rate 21 Blood Pressure 150/70 H Pulse Oximetry 95 97 Oxygen Delivery Method Room Air 04/20/24 22:01 04/20/24 22:01 04/20/24 22:18 Pulse Rate 59 L Respiratory Rate 21 Blood Pressure 134/62 139/84 Pulse Oximetry 97 Oxygen Delivery Method 04/20/24 22:18 04/20/24 22:30 04/20/24 22:31 Pulse Rate 58 L 63 66 Respiratory Rate 19 26 H 26 H Blood Pressure Pulse Oximetry 97 98 97 Oxygen Delivery Method 04/20/24 22:31 04/20/24 22:55 Pulse Rate 67 Respiratory Rate 22 Blood Pressure 128/82 128/82 Pulse Oximetry 96 Oxygen Delivery Method Room Air MDM - Chest Pain Lab Data 04/20/24 17:46 04/20/24 17:46 Labs: Lab Results 04/20/24 04/20/24 Range/Units 17:46 19:45 WBC 8.9 (4.5-11.0) X10^3/uL RBC 4.36 (4.0-5.2) X10^6/uL Hgb 12.9 (12.0-16.0) g/dL Hct 38.1 (36-46) % MCV 87.3 (80-100) fL MCH 29.6 (26-34) PG MCHC 33.9 (30-36) % RDW 13.5 (11.6-14.8) % Plt Count 300 (150-400) X10^3/uL Neut % (Auto) 46.6 L (50-75) % Lymph % (Auto) 40.3 H (25-40) % [place] % (Auto) 10.4 (3-14) % Eos % (Auto) 1.5 L (2-4) % Baso % (Auto) 1.2 (0-2) % Neut # (Auto) 4200 (4918-5623) /uL Lymph # (Auto) 3600 (1586-6889) /uL [place] # (Auto) 900 (0-900) /uL Eos # (Auto) 100 (0-450) /uL Baso # (Auto) 100 (0-100) /uL PT 11.4 (9.4-12.5) SECONDS INR 1.0 (0.9-1.3) APTT 30 (25.1-36.5) SECONDS Sodium 138 (137-145) mmol/L Potassium 4.0 (3.4-5.1) mmol/L Chloride 105 (98-107) mmol/L Carbon Dioxide 27 (22-32) mmol/L BUN 11 (7-17) mg/dL Creatinine 0.67 (0.52-1.04) mg/dL Estimated GFR > 60 (>60) mL/min BUN/Creatinine Ratio 16.4 (6-22) Glucose 119 H (80-110) mg/dL Calcium 9.7 (8.4-10.2) mg/dL Magnesium 2.1 (1.6-2.3) mg/dL Total Bilirubin 0.4 (0.2-1.3) mg/dL AST 26 (14-36) IU/L ALT 20 (<35) IU/L Alkaline Phosphatase 56 (38-126) U/L Total Creatine Kinase 45 (30-135) U/L Troponin I < 0.012 < 0.012 (0.01-0.034) ng/mL NT-Pro-B Natriuret Pep 175 (<450) pg/mL Total Protein 7.2 (6.3-8.2) g/dL Albumin 4.3 (3.5-5.0) g/dL Globulin 2.9 (1.7-4.1) g/dL Albumin/Globulin Ratio 1.5 (1.0-2.8) Lipase 145 (23-300) U/L ECG Data Attestation: I personally reviewed and interpreted this ECG as follows: Prior ECG tracings: available for review Interpretation: Sinus bradycardia rate of 58 MN 166 QRS 82 QTC of 418, no acute ST elevation or depression noted. Patient has a prior from 07/14/[address] depression and elevation significantly changed from today, prior to that showed EKG from 04/29/[address] segments today. [facility] Narrative Medical decision making narrative: EKG Sinus bradycardia no ST elevation or depression. Labs CBC is normal except for predominance of lymphocytes low neutrophils. Coags are negative, electrolytes are appropriate BUN creatinine are normal, glucose is 119 LFTs are negative troponins less than 0.012 with a repeat less than 0.012 and a BNP of 175. Chest x-ray is negative for acute change Patient does not wish to stay for observation and stress testing. Family notes she has been developing a little bit of dementia and has been reluctant to follow up with Cardiology but has been taking her medications regularly and following with primary care. Patient had aspirin [address] Fuentes, cardiology. Will message office to have patient follow up shortly. Continue current therapy. Discharge Plan Departure Patient Disposition: Home Clinical Impression: Chest pain Instructions: DI for Chest Pain Activity Restrictions/Additional Instructions: Follow up with cardiology, did speak with them today you should receive a call to follow up with Cardiology. If you have not heard from them in the next day please call to set up an appointment. Continue your home medications including your aspirin daily. Please return for new or worsening symptoms, any new chest pain, increasing shortness of breath, lightheadedness or passing out, nausea or vomiting, new swelling of your extremities or other new or concerning changes. Prescriptions: No Action atorvastatin 20 mg tablet 20 mg PO BEDTIME Qty: 90 3RF Calcium gummies See Rx Instructions .ROUTE .COMPLEX Patient Comments: 2 gummies PO QDAY Rx Instructions: 2 gummies PO QDAY Multivitamin Gummies See Rx Instructions .ROUTE .COMPLEX Patient Comments: 2 gummies PO QDAY Rx Instructions: 2 gummies PO QDAY Sleep Aid ([employer] Brand) 1 tab PO BEDTIME Referrals: Sheldon Dhillon MD [Primary Care Provider] - Kaylegih Fuentes MD [Physician] - Stand Alone Forms: Patient Portal/API/Survey
== END 2024-04-20 22:49 | disposition home or self-care (01) ==
PROVIDERS: Emergency Medicine; Emergency Provider Emergency Medicine; PCP Family Medicine
DX: R07.9 Chest pain, unspecified (principal); R42 Dizziness and giddiness; R00.1 Bradycardia, unspecified
CPT/HCPCS: 71045; 80053; 82550; 83690; 83735; 83880; 84484; 85025; 85610; 85730; 93005; 99283; 99284